=== PATIENT | male | born 1995 | race Caucasian/White ===

== ENCOUNTER 2018-06-24 12:00 | Emergency (ER) | payer OTHER ==
[2018-06-24 13:15] VITALS: BP 141/87
--- NOTE | 2018-06-24 13:26 | UC ---
Ear Complaint HPI - HPI Summary HPI Summary: [place] last evening, tripped and injured his lt ear. no difficulty hearing. pt believes he is utd with tetanus. - History of Current Complaint Chief Complaint: UCEar Stated Complaint: L EAR INJURY Time Seen by Provider: 06/24/18 13:16 Hx Obtained From: Patient Onset/Duration: Sudden Onset, Lasting Hours Severity Initially: Mild Severity Currently: Mild Pain Intensity: 3 Associated Signs/Symptoms: Positive: Trauma to Ear - Allergies/Home Medications Allergies/Adverse Reactions: Allergies Allergy/AdvReac Type Severity Reaction Status Date / Time No Known Allergies Allergy Verified 06/24/18 13:15 PMH/Surg Hx/FS Hx/Imm Hx Previously Healthy: Yes - Surgical History Surgical History: Yes Surgery Procedure, Year, and Place: appy, wisdom teeth extraction - Family History Known Family History: Positive: Hypertension - Social History Alcohol Use: Occasionally Substance Use Type: Marijuana Substance Use Comment - Amount & Last Used: 2 times a week Smoking Status (MU): Never Smoked Tobacco Review of Systems All Other Systems Reviewed And Are Negative: Yes Constitutional: Positive: Negative Skin: Positive: Other - scabbed laceration to the outer ear, multiple abraisions to side of face and ear, erythema of the pinna noted Eyes: Positive: Negative ENT: Positive: Negative Respiratory: Positive: Negative Cardiovascular: Positive: Negative Gastrointestinal: Positive: Negative Genitourinary: Positive: Negative Motor: Positive: Negative Neurovascular: Positive: Negative Musculoskeletal: Positive: Negative Neurological: Positive: Negative Psychological: Positive: Negative Is Patient Immunocompromised?: No Physical Exam Triage Information Reviewed: Yes Appearance: Well-Appearing, Well-Nourished, Pain Distress Vital Signs: Initial Vital Signs Temp 99.0 F 06/24/18 13:10 Pulse 48 06/24/18 13:10 Resp 18 06/24/18 13:10 BP 141/87 06/24/18 13:10 Pulse Ox 100 06/24/18 13:10 Vital Signs Reviewed: Yes Eye Exam: Normal ENT: Positive: TMs normal, Other - left pinna has multiple abraisions, , small scabbed laceration to the bottom edge of the pinna, behind the ear where it attaches to the head a large abrasion present. smaller abraisions to the side of the face. Dental Exam: Normal Neck exam: Normal Respiratory Exam: Normal Cardiovascular Exam: Normal Abdominal Exam: Normal Bowel Sounds: Positive: Present Musculoskeletal Exam: Normal Neurological Exam: Normal Psychological Exam: Normal Skin Exam: Normal Ear Complaint Course/Dx - Course Course Of Treatment: hx obtained, exam performed, meds reviewed, ear was cleansed. bactiracin applied, placed on ABX - Differential Dx/Diagnosis Differential Diagnosis/HQI/PQRI: Otitis Externa, Otitis Media, Pharyngitis, Trauma, URI Provider Diagnosis: Pinna infection, acute, Abrasion, face with infection Discharge - Sign-Out/Discharge Documenting (check all that apply): Patient Departure All imaging exams completed and their final reports reviewed: No Studies - Discharge Plan Condition: Stable Disposition: HOME Patient Education Materials: Abrasion (ED) Referrals: No Primary Care Phys,NOPCP [Primary Care Provider] - Additional Instructions: 1. warm compresses to the ear multiple times a day 2. Use vaseline to the cuts to keep them moist. 3. Take the antibiotic as prescribed. - Billing Disposition and Condition Condition: STABLE Disposition: Home
[2018-06-24] MEDS ORDERED: Gelfoam 12-7 ADSORBABL SPONGE* 1 EA SPONGE TOPICAL ONE (13:45)
== END 2018-06-24 13:56 | disposition home or self-care (01) ==
LOC: UCCORT 12:00
DX: S00.81XA Abrasion of other part of head, initial encounter (principal); S01.312A Laceration without foreign body of left ear, initial encounter; L08.9 Local infection of the skin and subcutaneous tissue, unspecified; W18.40XA Slipping, tripping and stumbling without falling, unspecified, initial encounter; Y93.02 Activity, running; Y92.9 Unspecified place or not applicable
CPT/HCPCS: 99202; A9270-GY; G0463